=== PATIENT | male | born 1990 | race Two or more races ===

== ENCOUNTER 2016-05-19 13:20 | Emergency (ER) | payer MEDICAID ==
[2016-05-19 15:14] LABS: Albumin 4.1 g/dL (3.4-5.0); BUN/Creatinine Ratio 8.8; Bilirubin, Total 0.6 mg/dL (0.2-1.0); Calcium 9.2 mg/dL (8.5-10.1); Magnesium 2.7 mg/dL (1.6-2.6); Potassium 4.3 mmol/L (3.5-5.1); Total Protein 7.9 g/dL (6.4-8.2)
[2016-05-19 15:40] LABS: Basophils # (auto) 0 uL; Basophils % (auto) 0.2 % (0.0-2.0); Eosinophils # (auto) 0.5 uL; Eosinophils % (auto) 5.1 % (0.0-7.0); Hematocrit 53.6 % (41.0-53.0); Hemoglobin 17.5 g/dL (13.5-17.5); Lymphocytes # (auto) 1.1 uL; Lymphocytes % (auto) 11.3 % (10.0-50.0); Mean Corpuscular Hemoglobin 29.4 pg (28.0-32.0); Mean Corpuscular Hgb Conc. 32.7 g/dL (32.0-36.0); Mean Corpuscular Volume 89.9 fL (80.0-100.0); Mean Platelet Volume 9.2 fL (7.4-10.4); Monocytes # (auto) 0.7 uL; Monocytes % (auto) 7.5 % (0.0-12.0); Neutrophils # (auto) 7.5 uL; Neutrophils % (auto) 75.9 % (37.0-80.0); Platelet Count (auto) 265 10^3/uL (140-450); Red Cell Distribution Width 13.2 % (11.6-16.0); White Blood Cell 9.9 10^3/uL (4.4-10.8)
[2016-05-19 21:48] VITALS: BP 145/80
[2016-05-19] MEDS ORDERED: IBUPROFEN 600 MG TAB PO ONE ×2 (23:08→23:15)
== END 2016-05-19 23:27 | disposition home or self-care (01) ==
LOC: ER 13:20
DX: J40 Bronchitis, not specified as acute or chronic (principal); R07.9 Chest pain, unspecified; F17.210 Nicotine dependence, cigarettes, uncomplicated; F12.10 Cannabis abuse, uncomplicated
CPT/HCPCS: 36415; 71020; 80053; 83735; 84484; 85025; 93005; 99285; G0434

== ENCOUNTER 2017-01-13 13:05 | Emergency (ER) | payer MEDICAID ==
[2017-01-13 13:09] VITALS: BP 131/92
[2017-01-13] MEDS ORDERED: KETOROLAC TROMETH 60MG/2ML VIAL IM ONE (15:15)
== END 2017-01-13 15:36 | disposition home or self-care (01) ==
LOC: ER 13:05
DX: S80.01XA Contusion of right knee, initial encounter (principal); G70.00 Myasthenia gravis without (acute) exacerbation; D16.21 Benign neoplasm of long bones of right lower limb; F17.210 Nicotine dependence, cigarettes, uncomplicated; F12.10 Cannabis abuse, uncomplicated; W22.09XA Striking against other stationary object, initial encounter; Y93.89 Activity, other specified; Y99.8 Other external cause status; Y92.89 Other specified places as the place of occurrence of the external cause
CPT/HCPCS: 73562; 96372; 99284; J1885

== ENCOUNTER 2017-05-14 14:19 | Emergency (ER) | payer MEDICAID ==
[~2017-05-14] VITALS: Ht 172.7 cm; Wt 99.3 kg
[2017-05-14 15:12] VITALS: BP 132/90
== END 2017-05-14 15:42 | disposition left against medical advice (07) ==
LOC: ER 14:19
DX: J11.1 Influenza due to unidentified influenza virus with other respiratory manifestations (principal); Z53.21 Procedure and treatment not carried out due to patient leaving prior to being seen by health care provider

== ENCOUNTER 2017-07-22 19:02 | Emergency (ER) | payer MEDICAID ==
[~2017-07-22] VITALS: Ht 180.3 cm; Wt 100.7 kg
[2017-07-22 21:49] VITALS: BP 137/90
[2017-07-22] MEDS ORDERED: ALUM & MAG HYDROX-SIMETH LIQ(MAALOX) 30 ML PO ONE (22:30)
== END 2017-07-22 22:55 | disposition home or self-care (01) ==
LOC: ER 19:02
DX: K21.9 Gastro-esophageal reflux disease without esophagitis (principal); R05 Cough; F17.210 Nicotine dependence, cigarettes, uncomplicated

== ENCOUNTER 2018-01-30 06:03 | Emergency (ER) | payer MEDICAID ==
[~2018-01-30] VITALS: Ht 175.3 cm; Wt 96.6 kg
[2018-01-30 06:16] VITALS: BP 127/93
== END 2018-01-30 08:00 | disposition home or self-care (01) ==
LOC: ER 06:11
DX: S60.012A Contusion of left thumb without damage to nail, initial encounter (principal); F17.210 Nicotine dependence, cigarettes, uncomplicated; F12.10 Cannabis abuse, uncomplicated; F10.10 Alcohol abuse, uncomplicated; W22.8XXA Striking against or struck by other objects, initial encounter; Y93.89 Activity, other specified; Y92.89 Other specified places as the place of occurrence of the external cause; Y99.8 Other external cause status
CPT/HCPCS: 73140

== ENCOUNTER 2018-03-02 16:50 | Emergency (ER) | payer MEDICAID ==
[~2018-03-02] VITALS: Ht 180.3 cm; Wt 97.1 kg
[2018-03-02 16:59] VITALS: BP 125/85
== END 2018-03-03 01:14 | disposition left against medical advice (07) ==
LOC: ER 16:50
DX: R51 Headache (principal); M25.512 Pain in left shoulder; Z53.21 Procedure and treatment not carried out due to patient leaving prior to being seen by health care provider

== ENCOUNTER 2018-05-13 18:25 | Emergency (ER) | payer MEDICAID ==
[~2018-05-13] VITALS: Ht 177.8 cm; Wt 100.2 kg
[2018-05-13 19:01] VITALS: BP 130/90
[2018-05-13] MEDS ORDERED: cefTRIAXone SOD 1,000 MG VL IM ONE (21:15)
[2018-05-13] MEDS ORDERED: ACETAMINOPHEN/CODEINE#3 (300/30mg) TAB PO ONE (21:15)
[2018-05-13] MEDS ORDERED: PANTOPRAZOLE 40 MG TAB PO ONE (21:15)
[2018-05-13] MEDS ORDERED: methylPREDNISolone SOD SUCC 125 MG/2 ML VL IM ONE (21:15)
== END 2018-05-13 22:10 | disposition home or self-care (01) ==
LOC: ER 18:25
DX: J06.9 Acute upper respiratory infection, unspecified (principal); F17.210 Nicotine dependence, cigarettes, uncomplicated; F12.10 Cannabis abuse, uncomplicated; K21.9 Gastro-esophageal reflux disease without esophagitis
CPT/HCPCS: 96372; 99283; J0696; J2930

== ENCOUNTER 2019-01-02 09:30 | Emergency (ER) | payer MEDICAID ==
[~2019-01-02] VITALS: Ht 177.8 cm; Wt 57.7 kg
[2019-01-02 10:00] VITALS: BP 122/84
[2019-01-02] MEDS ORDERED: ACETAMINOPHEN 500 MG TAB PO ONE (11:30)
== END 2019-01-02 12:55 | disposition home or self-care (01) ==
LOC: ER 09:43
DX: M25.512 Pain in left shoulder (principal); M54.6 Pain in thoracic spine; M54.2 Cervicalgia; G43.909 Migraine, unspecified, not intractable, without status migrainosus; F17.210 Nicotine dependence, cigarettes, uncomplicated; F12.90 Cannabis use, unspecified, uncomplicated
CPT/HCPCS: 73030

== ENCOUNTER 2021-11-26 18:50 | Emergency (ER) | payer MEDICAID ==
[~2021-11-26] VITALS: Ht 180.3 cm; Wt 117.9 kg
[2021-11-26 21:08] VITALS: BP 128/95
== END 2021-11-26 22:23 | disposition home or self-care (01) ==
LOC: ER 18:50
DX: M25.512 Pain in left shoulder (principal); M25.562 Pain in left knee
CPT/HCPCS: 73030; 73562